=== PATIENT | male | born 1965 | race Caucasian/White ===

== ENCOUNTER 2022-09-07 06:19 | Inpatient (IN) | payer SELFPAY ==
[~2022-09-07] VITALS: Ht 170.2 cm; Wt 80.7 kg
[2022-09-07 06:20] VITALS: BP 179/111
--- NOTE | 2022-09-07 06:22 | NUR ---
PT [facility] ER BED 11
--- NOTE | 2022-09-07 06:25 | NUR ---
ERMD by bedside
--- NOTE | 2022-09-07 06:25 | NUR ---
BIBA. c/o chest pain radiating to left arm x 3 hrs. per pt, hx of HTN and has prescription for lisinopril but non compliant with medications. pt tachycardic and BP elevated on arrival. 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 denies any allergies.
--- NOTE | 2022-09-07 06:48 | NUR ---
Labs collected sent to lab
--- NOTE | 2022-09-07 06:48 | NUR ---
Xray by bedside
[2022-09-07] MEDS ORDERED: MORPHINE SULFATE 4 MG/ML SYR IVP ONE (06:50)
--- NOTE | 2022-09-07 06:50 | NUR ---
Pt c/o headache. ERMD made aware.
[2022-09-07 06:52] LABS: BASOPHILS # (AUTO) 0.1 K/uL (0.00-0.22); BASOPHILS % (AUTO) 1.1 % (0.0-2.0); EOSINOPHILS % (AUTO) 0.3 % (0.0-4.0); HEMATOCRIT 42.7 % (36-52); HEMOGLOBIN 14.3 g/dL (12.0-18.0); LYMPHOCYTES # (AUTO) 0.9 K/uL (2.0-11.5); MEAN CORPUSCULAR HEMOGLOBIN 30 pg (27-31); MEAN CORPUSCULAR HGB CONC 34 g/dL (33-37); MEAN CORPUSCULAR VOLUME 88.6 fL (80-94); MONOCYTES # (AUTO) 0.8 K/uL (0.8-1.0); MONOCYTES % (AUTO) 8.9 % (1.7-9.3); NEUTROPHILS # (AUTO) 7.1 K/uL (1.8-7.7); NEUTROPHILS % (AUTO) 79.7 % (42.2-75.2); PLATELET COUNT (AUTO) 338 K/uL (140-450); RED BLOOD CELL COUNT(AUTO) 4.82 MIL/uL (4.20-6.10); RED CELL DISTRIBUTION WIDTH 13.2 % (11.6-13.7); WHITE BLOOD COUNT (AUTO) 8.9 K/uL (4.8-10.8)
[2022-09-07 07:11] LABS: ALBUMIN 4.5 g/dL (3.4-5.0); ANION GAP 15.8 (8-16); CREATININE 1.2 mg/dL (0.6-1.3); POTASSIUM 3.8 mmol/L (3.5-5.1); TOTAL BILIRUBIN 0.6 mg/dL (0.0-1.0)
--- NOTE | 2022-09-07 07:22 | NUR ---
Report given to Syd RING for transfer of care
--- NOTE | 2022-09-07 07:30 | NUR ---
ASSUMED PATIENT CARE, CONCUR WITH PRIOR NURSING ASSESSMENTS.
[2022-09-07] MEDS ORDERED: hydrALAZINE 20 MG/ML VIAL IM ONE (08:05)
[2022-09-07] MEDS ORDERED: KETOROLAC 15 MG/ML VIAL IVP ONE (08:05)
[2022-09-07] MEDS ORDERED: NACL 0.9% 1,000 ML IV ONE (11:55)
[2022-09-07] MEDS ORDERED: LORazepam 2 MG/ML VIAL IVP ONE ×2 (15:00→15:30)
--- NOTE | 2022-09-07 15:27 | NUR ---
RECEIVED CALL FROM [facility] THAT BNP WAS NEVER PICKED UP THIS MORNING. DR LIU MADE AWARE. 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
[2022-09-07] MEDS ORDERED: lisinopriL 20 MG TAB PO SCH (16:10)
[2022-09-07] MEDS ORDERED: NITROGLYCERIN 0.4 MG TAB SL SCH (16:10)
--- NOTE | 2022-09-07 19:40 | NUR ---
Assumed care of patient, no c/o discomfort at this time. VSS
--- NOTE | 2022-09-07 21:59 | NUR ---
Report given to Delaney RING
[2022-09-07 22:20] VITALS: BP 145/85
--- NOTE | 2022-09-07 22:20 | NUR ---
RECEIVED PT FROM ER , AAOX4 , PER PT THE WAY HE SPEAKS IS SEEMS SLURR , BECAUSE HE HAS NASAL POLYPS , DENIES ANY PAIN , DIZZINESS AT THIS TIME , AMBULATES TO BED , SL INTACT AND PATENT , ADM ASSESSMENT WIIL BE DONE . CALL LIGHT / URINAL WITHIN REACH , ON TELE MONITOR - SR . WILL CONT. TO MONITOR
--- NOTE | 2022-09-07 23:51 | NUR ---
BP 145/85 , DENIES PAIN , REQUESTING FOOD - WILL REFER TO DR Wendy STRICKLAND
[2022-09-08 04:00] VITALS: BP 110/73
--- NOTE | 2022-09-08 04:00 | NUR ---
ROUNDS , NO COMPLAIN MADE .
--- NOTE | 2022-09-08 06:00 | NUR ---
RESTING ON BED , NO COMPLAIN MADE . CALL LIGHT WITHIN REACH .
--- NOTE | 2022-09-08 07:05 | NUR ---
RECEIVED REPORT FROM NIGHTSHIFT NURSE. PT IS ASLEEP IN BED, NO SIGNS OF DISTRESS.
--- NOTE | 2022-09-08 07:18 | NUR ---
ENDORSED PT FOR CONT. OF CARE , BP 110/73 . CALL LIGHT WITHIN REACH
[2022-09-08 08:00] VITALS: BP 155/66
[2022-09-08] MEDS ORDERED: ATORVASTATIN 20 MG TAB PO SCH (09:00)
[2022-09-08] MEDS ORDERED: ASPIRIN 81 MG TAB.CHEW PO ONE (09:00)
--- NOTE | 2022-09-08 09:16 | NUR ---
PATIENT HAS BEEN SCREENED AND CATEGORIZED MODERATE NUTRITION RISK. PATIENT WILL BE SEEN WITHIN 3-5 DAYS OF ADMISSION. REVIEWED BY AMOS SHIEL[address] RD
[2022-09-08] MEDS ORDERED: NACL 0.9% 1,000 ML IV SCH (10:50)
[2022-09-08] MEDS ORDERED: ACETAMINOPHEN 325 MG TAB PO PRN (10:50)
[2022-09-08] MEDS ORDERED: HYDROcodone/APAP 7.5/325 MG 1 TAB PO PRN (10:50)
[2022-09-08] MEDS ORDERED: ONDANSETRON 4 MG/2 ML VIAL IVP PRN (10:50)
--- NOTE | 2022-09-08 11:17 | NUR ---
PT IV FLUIDS WAS STARTED. IV PATENT AND INTACT, ALL NEEDS BEING MET. ALL SAFETY MEASURES AND CALL LIGHT WITHIN REACH.
[2022-09-08 11:20] LABS: BASOPHILS % (AUTO) 0.6 % (0.0-2.0); EOSINOPHILS # (AUTO) 0.1 K/uL (0-0.4); EOSINOPHILS % (AUTO) 1.9 % (0.0-4.0); HEMATOCRIT 40.8 % (36-52); HEMOGLOBIN 13.3 g/dL (12.0-18.0); LYMPHOCYTES # (AUTO) 1.4 K/uL (2.0-11.5); LYMPHOCYTES % (AUTO) 25.9 % (20.5-51.1); MEAN CORPUSCULAR HEMOGLOBIN 29 pg (27-31); MEAN CORPUSCULAR HGB CONC 33 g/dL (33-37); MEAN CORPUSCULAR VOLUME 90.1 fL (80-94); MONOCYTES # (AUTO) 0.7 K/uL (0.8-1.0); MONOCYTES % (AUTO) 12.6 % (1.7-9.3); NEUTROPHILS # (AUTO) 3.1 K/uL (1.8-7.7); PLATELET COUNT (AUTO) 299 K/uL (140-450); RED BLOOD CELL COUNT(AUTO) 4.53 MIL/uL (4.20-6.10); RED CELL DISTRIBUTION WIDTH 13.4 % (11.6-13.7); WHITE BLOOD COUNT (AUTO) 5.3 K/uL (4.8-10.8)
[2022-09-08 11:39] LABS: PROTHROMBIN TIME 10.1 secs (10.8-13.4)
[2022-09-08 11:58] LABS: ANION GAP 11.9 (8-16); POTASSIUM 3.9 mmol/L (3.5-5.1)
--- NOTE | 2022-09-08 12:24 | NUR ---
UPON ENTERING PATIENTS ROOM, PT IS GONE. UNABLE TO FIND HIM IN THE RESTROOM OR HALLWAY. SECURITY CALLED, SEARCHED OUTSIDE AND HOSPITAL. NO SIGNS OF PATIENT. TELE BOX WAS LEFT BEHIND, IV WAS STILL IN. LEFT AC 20 GAUGE. ALL OF PTS CLOTHES GONE. PTS WALLET WAS FOUND UNDER THE BED, LABELED AND PLACED IN BAG AT NURSING STATION. SECURITY IS LOOKING AT [facility] TO DETERMINE TIME OF ELOPEMENT. BRUNO BENOIT WAS CALLED AT 1232, SPOKE WITH TERRANCE. ALL QUESTIONS AND INFORMATION PROVIDED. PD STATES THEY WILL SEND SOMEONE OVER TO SEARCH FOR PATIENT. DR STRICKLAND NOTIFIED OF ELOPEMENT.
--- NOTE | 2022-09-08 12:42 | NUR ---
SECURITY STATED THE PATIENT LEFT AT 1208
[2022-09-08 14:46] LABS: FREE T4 (FREE THYROXINE) 1.14 ng/dL (0.76-1.46); MAGNESIUM 2.2 mg/dL (1.8-2.4); PHOSPHORUS 4.5 mg/dL (2.5-4.9); THYROID STIMULATING HORMONE 0.94 uIU/mL (0.34-3.74)
[2022-09-08 16:38] LABS: CHOL/HDL RATIO 3.9 (1-4.5)
[2022-09-08] MEDS ORDERED: DOCUSATE SODIUM 100 MG GELCAP PO SCH (21:00)
[2022-09-09] MEDS ORDERED: PANTOPRAZOLE 40 MG INJ VIAL IVP SCH (09:00)
== END 2022-09-08 12:51 | disposition left against medical advice (07) | DRG 311 ==
LOC: MED 06:19 → MTU 16:15
PROVIDERS: ADMIT Family Medicine; ATTEND Family Medicine
DX: I24.9 Acute ischemic heart disease, unspecified (principal); I10 Essential (primary) hypertension; F15.90 Other stimulant use, unspecified, uncomplicated; F32.A Depression, unspecified; I16.0 Hypertensive urgency; Z20.822 Contact with and (suspected) exposure to COVID-19
CPT/HCPCS: 36415; 71045; 71275; 80048; 80053; 82140; 82150; 83036; 83605; 83690; 83735; 83880; 84100; 84439; 84443; 84484; 85025; 85610; 85730; 87081; 96361; 96372; 96374; 96375; 99285; J0360; J1644; J1885; J2060; J2270; Q0092; Q9967